=== PATIENT | male | born 1965 | race Caucasian/White ===

== ENCOUNTER 2017-08-02 23:32 | Emergency (ER) | payer MEDICAID ==
[~2017-08-02] VITALS: Ht 182.9 cm; Wt 103.4 kg
[2017-08-02 23:51] VITALS: BP 153/80
[2017-08-03] MEDS ORDERED: IBUP-1984 PO (00:02)
== END 2017-08-03 00:41 | disposition home or self-care (01) ==
LOC: ER 23:33
DX: S21.111A Laceration without foreign body of right front wall of thorax without penetration into thoracic cavity, initial encounter (principal); F17.200 Nicotine dependence, unspecified, uncomplicated; Z79.899 Other long term (current) drug therapy; X99.1XXA Assault by knife, initial encounter; Y93.89 Activity, other specified; Y92.89 Other specified places as the place of occurrence of the external cause; Y99.8 Other external cause status
CPT/HCPCS: 12002; 71045; 99283

== ENCOUNTER 2017-08-05 16:09 | Emergency (ER) | payer MEDICAID ==
[~2017-08-05] VITALS: Ht 185.4 cm; Wt 100.0 kg
[~2017-08-05 16:09] MED LIST: IBUP-1984 PO
[2017-08-05] MEDS ORDERED: ondansetron 4mg rapidly disintigrating tab PO ONE (20:50)
[2017-08-05] MEDS ORDERED: HYDROcodone/acetaminophen 10/325mg tab PO ONE (20:50)
[2017-08-05] MEDS ORDERED: ONDA4TAB9 PO (21:14)
[2017-08-05] MEDS ORDERED: HYDR-565 PO (21:14)
[2017-08-05 21:43] VITALS: BP 126/72
== END 2017-08-05 21:40 | disposition home or self-care (01) ==
LOC: ER 16:11
DX: S62.324A Displaced fracture of shaft of fourth metacarpal bone, right hand, initial encounter for closed fracture (principal); X99.1XXA Assault by knife, initial encounter; Y93.89 Activity, other specified; Y92.89 Other specified places as the place of occurrence of the external cause; Y99.8 Other external cause status
CPT/HCPCS: 29125; 73130; 99284; A6449

== ENCOUNTER 2017-08-10 14:18 | Outpatient (CLI) | payer MEDICAID ==
[~2017-08-10] VITALS: Ht 185.4 cm; Wt 103.4 kg
[2017-08-10 14:17] VITALS: BP 138/70
[~2017-08-10 14:18] MED LIST changes: +HYDR-565 PO; +ONDA4TAB9 PO
== END 2017-08-10 15:49 | disposition home or self-care (01) ==
LOC: ORTHO 14:18
PROVIDERS: ATTEND Nurse Practitioner Family
DX: S62.325A Displaced fracture of shaft of fourth metacarpal bone, left hand, initial encounter for closed fracture (principal); S62.357A Nondisplaced fracture of shaft of fifth metacarpal bone, left hand, initial encounter for closed fracture; F17.210 Nicotine dependence, cigarettes, uncomplicated; E78.00 Pure hypercholesterolemia, unspecified; F41.9 Anxiety disorder, unspecified; F32.9 Major depressive disorder, single episode, unspecified; Z86.19 Personal history of other infectious and parasitic diseases; X58.XXXA Exposure to other specified factors, initial encounter; Y93.89 Activity, other specified; Y92.89 Other specified places as the place of occurrence of the external cause; Y99.8 Other external cause status
CPT/HCPCS: 73120; 73130

== ENCOUNTER 2017-08-31 09:32 | Outpatient (CLI) | payer MEDICAID ==
[2017-08-31 09:41] VITALS: BP 118/68
== END 2017-08-31 10:25 | disposition home or self-care (01) ==
LOC: ORTHO 09:32
PROVIDERS: ATTEND Nurse Practitioner Family
DX: S62.355 Nondisplaced fracture of shaft of fourth metacarpal bone, left hand (principal); S62.357 Nondisplaced fracture of shaft of fifth metacarpal bone, left hand; F32.9 Major depressive disorder, single episode, unspecified; F17.210 Nicotine dependence, cigarettes, uncomplicated; Z59.0 Homelessness; X58.XXXD Exposure to other specified factors, subsequent encounter
CPT/HCPCS: 73130; 99213

== ENCOUNTER 2017-10-06 10:28 | Outpatient (CLI) | payer MEDICAID ==
[2017-10-06 10:26] VITALS: BP 148/80
== END 2017-10-06 10:56 | disposition home or self-care (01) ==
LOC: ORTHO 10:28
PROVIDERS: ATTEND Nurse Practitioner Family
DX: S62.355 Nondisplaced fracture of shaft of fourth metacarpal bone, left hand (principal); S62.357 Nondisplaced fracture of shaft of fifth metacarpal bone, left hand; F17.210 Nicotine dependence, cigarettes, uncomplicated; F32.9 Major depressive disorder, single episode, unspecified; G89.29 Other chronic pain; X58.XXXD Exposure to other specified factors, subsequent encounter
CPT/HCPCS: 73130; 99213